=== PATIENT | female | born 2000 | race Caucasian/White ===

== ENCOUNTER 2024-02-02 07:23 | Day surgery (SDC) | payer OTHER ==
[2024-02-02] MEDS ORDERED: hydrALAZINE 20 MG/ML VIAL SLOW IVP PRN (08:32)
== END 2024-02-02 10:22 | disposition home or self-care (01) ==
LOC: CSHLD/OP 07:23
PROVIDERS: ATTEND Obstetrics & Gynecology
DX: O47.1 False labor at or after 37 completed weeks of gestation (principal); O99.013 Anemia complicating pregnancy, third trimester; O21.2 Late vomiting of pregnancy; O99.891 Other specified diseases and conditions complicating pregnancy; R19.7 Diarrhea, unspecified; Z79.899 Other long term (current) drug therapy; Z3A.39 39 weeks gestation of pregnancy
CPT/HCPCS: 99283

== ENCOUNTER 2024-02-07 15:59 | Inpatient (IN) | payer OTHER ==
[2024-02-07] MEDS ORDERED: Diphenoxylate HCl/Atropine Tablet PO PRN (16:32)
[2024-02-07] MEDS ORDERED: hydrALAZINE 20 MG/ML VIAL SLOW IVP PRN ×2 (16:32→22:31)
[2024-02-07] MEDS ORDERED: Acetaminophen 500 MG TAB PO PRN (16:32)
[2024-02-07] MEDS ORDERED: Docusate 100 MG CAP PO PRN (16:32)
[2024-02-07] MEDS ORDERED: Misoprostol 200 MCG TAB PR PRN (16:32)
[2024-02-07] MEDS ORDERED: Carboprost 250 MCG/ML AMP IM PRN (16:32)
[2024-02-07] MEDS ORDERED: Tranexamic Acid 1,000 MG/10 ML VIAL IVP PRN (16:32)
[2024-02-07] MEDS ORDERED: Methylergonovine 0.2 MG/ML VIAL IM PRN ×2 (16:32→22:31)
[2024-02-07] MEDS ORDERED: Promethazine HCl 25 MG/ML VIAL IM PRN (16:32)
[2024-02-07] MEDS ORDERED: Ondansetron PF 4 MG/2 ML Vial IVP PRN (16:32)
[2024-02-07] MEDS ORDERED: Lidocaine 1% (PF) 30 ML VIAL SC PRN (16:35)
[2024-02-07] MEDS ORDERED: HYDROcodone/Acetaminophen 5/325 mg Tablet PO PRN ×3 (16:35→22:31)
[2024-02-07] MEDS ORDERED: Oxytocin 30 units/NS 500 ML 500 ML IV SCH ×2 (16:45→22:31)
[2024-02-07] MEDS ORDERED: Lactated Ringer's 1,000 ML IV SCH (16:45)
[2024-02-07 16:48] LABS: Hematocrit 36.2 % (34.9-44.5); Hemoglobin 13.1 g/dL (12.0-15.5); Mean Corpuscular HGB CONC 36.2 g/dL (32.0-36.0); Mean Corpuscular Hemoglobin 32.4 pg (27.0-33.0); Mean Corpuscular Volume 89.6 fL (81.6-98.3); Mean Platelet Volume 10.7 fL (7.4-10.4); Platelet Count 200 10x3/uL (150-450); RBC Distribution Width 13.3 % (11.5-14.5); Red Blood Cell (RBC) Count 4.04 10x6/uL (3.90-5.03); White Blood Cell (WBC) Count 14.8 10x3/uL (3.5-10.5)
[2024-02-07 17:36] LABS: Syphilis Antibody Nonreactive (Nonreactive); Syphilis Antibody Index 0.03 S/CO (<1.00 Non-Reactive)
[2024-02-07 17:38] LABS: HBsAg Index 0.17 S/CO (0-0.99); Hep B Surf Ag - L&D Non-Reactive S/CO (NonReactive)
[2024-02-07 18:40] VITALS: BMI 29.0
[2024-02-07] MEDS: Oxytocin 30 units/NS 500 ML 500 ML ONE (18:45)
[2024-02-07] MEDS: fentaNYL 50 mcg/mL 1 mL Vial SLOW IVP PRN (19:24)
[2024-02-07 19:28] LABS: ALT (SGPT) 15 U/L (8-55); AST (SGOT) 18 U/L (5-34); Alkaline Phosphatase 168 U/L (40-110); Anion Gap 20 mmol/L (10-20); BUN (Urea Nitrogen) 7 mg/dL (7.0-18.7); Bilirubin, Total 0.4 mg/dL (0.2-1.2); Calc. Creatinine Clearance 151 mL/min (70-130); Calcium 8.7 mg/dL (7.8-10.44); Carbon Dioxide 17 mmol/L (22-29); Chloride 102 mmol/L (98-107); Estimated GFR 111; Globulin 2.9 g/dL (2.4-3.5); Glucose 74 mg/dL (70-105); Potassium 3.6 mmol/L (3.5-5.1); Protein, Total 5.9 g/dL (6.0-8.3); Sodium 135 mmol/L (136-145)
[2024-02-07] MEDS: Ibuprofen 800 MG TAB PO PRN (21:30)
[2024-02-07] MEDS ORDERED: Bisacodyl 10 MG SUPP PR PRN (22:31)
[2024-02-07] MEDS ORDERED: Misoprostol 200 MCG TAB VAG PRN (22:31)
[2024-02-07] MEDS ORDERED: Lanolin Ointment 7 GM TUBE TOP PRN (22:31)
[2024-02-07] MEDS ORDERED: Milk Of Magnesia 30 ML UDCUP PO PRN (22:31)
[2024-02-07] MEDS ORDERED: Boostrix 0.5 ML (Tdap) VIAL (>/=7 yrs of age) IM ONE (22:31)
[2024-02-07 22:56] LABS: ALT (SGPT) 14 U/L (8-55); AST (SGOT) 21 U/L (5-34); Albumin 2.6 g/dL (3.5-5.0); Alkaline Phosphatase 145 U/L (40-110); Anion Gap 15 mmol/L (10-20); BUN (Urea Nitrogen) 7 mg/dL (7.0-18.7); Bilirubin, Total 0.5 mg/dL (0.2-1.2); Calc. Creatinine Clearance 157 mL/min (70-130); Calcium 8.5 mg/dL (7.8-10.44); Carbon Dioxide 20 mmol/L (22-29); Chloride 103 mmol/L (98-107); Estimated GFR 117; Glucose 86 mg/dL (70-105); Potassium 4.5 mmol/L (3.5-5.1); Protein, Total 5.6 g/dL (6.0-8.3); Sodium 133 mmol/L (136-145)
[2024-02-08] MEDS: Docusate 100 MG CAP PO SCH ×2 (00:14→09:00)
[2024-02-08] MEDS: Lidocaine 1% (PF) 30 ML VIAL ONE (00:15)
[2024-02-08] MEDS: Ibuprofen 800 MG TAB PO SCH (05:17)
[2024-02-08] MEDS: Benzocaine-Menthol 82.5 ML CAN TOP PRN (07:35)
[2024-02-08] MEDS: Prenatal Vitamin 1 TAB PO SCH (07:36)
[2024-02-08] MEDS: Ferrous Sulfate 325 MG TAB PO SCH (08:48)
[2024-02-09 09:32] VITALS: BP 117/80; TEMP 99.2
== END 2024-02-09 16:00 | disposition home or self-care (01) | DRG 807 ==
LOC: CSHLD/OP 15:59 → CSHLD 16:38 → CSHPP 22:15
PROVIDERS: ADMIT Obstetrics & Gynecology; ATTEND Obstetrics & Gynecology
PROC: 10E0XZZ Delivery of Products of Conception, External Approach (ICD-10-PCS; principal; 2024-02-07)
PROC: 0KQM0ZZ Repair Perineum Muscle, Open Approach (ICD-10-PCS; 2024-02-07)
DX: O70.1 Second degree perineal laceration during delivery (principal); Z37.0 Single live birth; Z3A.40 40 weeks gestation of pregnancy; Z79.899 Other long term (current) drug therapy
CPT/HCPCS: 36415; 80053; 85027; 86780; 86850; 86900; 86901; 87340; 99285; J2590; J3010